=== PATIENT | female | born 1955 | race Caucasian/White ===

== ENCOUNTER 2019-06-27 13:12 | Emergency (ER) | payer MEDICARE, OTHER ==
[~2019-06-27] VITALS: Ht 162.6 cm; Wt 59.5 kg
[2019-06-27 13:40] VITALS: BP 135/84
[2019-06-27] MEDS ORDERED: KETOROLAC 30 MG/1 ML ONE (13:54)
[2019-06-27] MEDS ORDERED: KETOROLAC 30 MG/1 ML IM ONE (14:00)
== END 2019-06-27 14:40 | disposition home or self-care (01) ==
LOC: ED 14:32
DX: M47.812 Spondylosis without myelopathy or radiculopathy, cervical region (principal); V49.49XA Driver injured in collision with other motor vehicles in traffic accident, initial encounter; Y93.89 Activity, other specified; Y92.410 Unspecified street and highway as the place of occurrence of the external cause; Y99.8 Other external cause status
CPT/HCPCS: 72125; 96372; 99284; J1885